=== PATIENT | female | born 1970 | race African-American/Black ===

== ENCOUNTER 2020-03-22 20:48 | Emergency (ER) | payer OTHER, SELFPAY ==
[~2020-03-22] VITALS: Ht 167.6 cm; Wt 72.6 kg
[2020-03-22] MEDS ORDERED: AMLODIPINE BES2.5 MG ORAL (20:54)
[2020-03-22] MEDS ORDERED: Albuterol 90mcg Inhaler 8gm INH STA (21:05)
[2020-03-22 21:09] VITALS: BP 145/93
[2020-03-22] MEDS ORDERED: dexAMETHasone 10mg/ml Inj IV ONE (21:30)
[2020-03-22 22:26] LABS: BILIRUBIN, URINE NEGATIVE (NEGATIVE); COLOR,URINE PALE YELLOW; GLUCOSE, URINE (UA) NEGATIVE (NEGATIVE); KETONES,URINE NEGATIVE (NEGATIVE); LEUKOCYTE ESTERASE ,URINE 1+ (NEGATIVE); NITRITE,URINE NEGATIVE (NEGATIVE); PH,URINE 7 (4.5-8.0); PROTEIN,URINE NEGATIVE (NEGATIVE); UROBILINOGEN,URINE NORMAL MG/DL (0.0-1.0)
[2020-03-22 22:29] LABS: BASOPHILS % (AUTO) 1.4 % (0.0-2.0); EOSINOPHILS % (AUTO) 0.4 % (0.0-3.0); HEMATOCRIT 44.7 % (37.0-47.0); HEMOGLOBIN 14.5 G/DL (12.0-16.0); LYMPHOCYTES % (AUTO) 37.4 % (20.0-45.0); MEAN CORPUSCULAR VOLUME 90 FL (80-99); NEUTROPHILS % (AUTO) 51.7 % (45.0-75.0); PLATELET COUNT 262 K/UL (150-450); RED BLOOD COUNT 4.98 M/UL (4.20-5.40); RED CELL DISTRIBUTION WIDTH 16.1 % (11.6-14.8)
[2020-03-22 22:30] LABS: APPEARANCE,URINE SLIGHTLY CLOUDY
[2020-03-22 22:48] LABS: INR 0.9 (0.9-1.1)
[2020-03-22 23:00] VITALS: BP 139/83
--- NOTE | 2020-03-22 23:09 | Emergency Room Report ---
History of Present Illness General Chief Complaint: Upper Respiratory Illness Source: Patient (Leroy Feliz MD) Present Illness HPI Patient presents with shortness of breath and wheezing and productive cough. This been going on for several days and worsening. She was brought in by EMS. They initially stated that they did not hear any wheezing. The patient states she does not have an inhaler at this time. The cough is productive of clear mucus at this time. She gets significantly short of breath when she tries to exert herself. This is not her worst attack. She has some chest pressure but denies any chest pain at this time. She stopped smoking a month ago. She denies calf pain edema hemoptysis. She has felt feverish but denies any documented temperature. The patient states is been many years since she last had a chest x-ray or evaluation of her chest. Unknown whether she has been exposed to COVID-19 positive contacts. No sore throat, palpitations, nausea, vomiting, diarrhea, dysuria, abdominal pain, joint pain, rashes, depression, anxiety, visual changes, dizziness, headache. (Leroy Feliz MD) Allergies: Coded Allergies: PENICILLINS (Verified Allergy, Unknown, 03/22/20) SULFA (SULFONAMIDE ANTIBIOTICS) (Verified Allergy, Unknown, 03/22/20) COVID-19 Screening Contact w/high risk pt: Yes Experienced COVID-19 symptoms?: Yes COVID-19 Testing performed [employer]: Yes COVID-19 Screening: PUI COVID-19 COVID-19 Testing Source: NASOPHARYNX (Leroy Feliz MD) Patient History Past Medical History: see triage record Social History: Reports: smoking - stopped 1 month ago, drug use - see tox screen Social History Narrative from streets Reviewed Nursing Documentation: PMH: Agreed; PSxH: Agreed (Leroy Feliz MD) Nursing Documentation-PMH Past Medical History: No History, Except For Hx Hypertension: Yes Hx Diabetes: Yes (Leroy Feliz MD) Review of Systems All Other Systems: negative except mentioned in HPI (Leroy Feliz MD) Physical Exam Vital Signs Date Time Temp Pulse Resp B/P (MAP) Pulse Ox O2 Delivery O2 Flow Rate FiO2 03/22/20 20:51 98.1 100 18 145/93 (110) 98 Room Air Sp02 EP Interpretation: reviewed, normal General Appearance: alert, GCS 15, non-toxic, mild distress Head: normocephalic, atraumatic Eyes: bilateral eye PERRL, bilateral eye EOMI, bilateral eye Scleral Injection ENT: moist mucus membranes Neck: supple Respiratory: respiratory distress - Mild, rhonchi, wheezing, expiration, ins piration Cardiovascular #1: no edema, tachycardia Cardiovascular #2: 2+ radial (L) Gastrointestinal: normal bowel sounds, non tender, soft Musculoskeletal: back normal, normal range of motion, no calf tenderness Neurologic: alert, oriented x3, grossly normal Psychiatric: mood/affect normal Skin: no rash, warm/dry, other - Patient fully clothed (Leroy Feliz MD) Medical Decision Making Diagnostic Impression: Primary Impression: COPD exacerbation Additional Impressions: Mass of upper lobe of right lung Pleural effusion on left UTI (urinary tract infection) Qualified Codes: N30.00 - Acute cystitis without hematuria Upper respiratory tract infection due to COVID-19 virus Cocaine abuse ER Course Patient with history of COPD presents with dyspnea and wheezing. Differential includes exacerbation of COPD, COVID-19, bronchitis amongst others. While waiting to be admitted to the emergency department the patient was having some respiratory difficulty and using accessory muscles. Albuterol was ordered to be used while waiting for an emergency department bed. Evaluation with EKG, chest x-ray and labs. Patient treated with dexamethasone. Patient placed on a surveillance monitor when available. Suspicion for pulmonary was extremely low. EKG with nonspecific ST-T wave changes. Chest x-ray with right upper lobe mass and left lower lobe effusion with scarring. White count normal. CMP unremarkable. Urinalysis with pyuria. C-reactive protein elevated. Lactic acid normal. Azithromycin ordered for COPD exacerbation. Patient somewhat improved with albuterol metered-dose inhaler. Macrobid ordered for urinary tract infection. Covid test ordered. Patient also had albuterol and Atrovent ordered. Covid test positive. Patient signed out to Dr. German for final disposition. Laboratory Tests Test 03/22/20 22:05 03/22/20 22:50 White Blood Count 9.0 K/UL (4.8-10.8) Red Blood Count 4.98 M/UL (4.20-5.40) Hemoglobin 14.5 G/DL (12.0-16.0) Hematocrit 44.7 % (37.0-47.0) Mean Corpuscular Volume 90 FL (80-99) Mean Corpuscular Hemoglobin 29.2 PG (27.0-31.0) Mean Corpuscular Hemoglobin Concent 32.5 G/DL (32.0-36.0) Red Cell Distribution Width 16.1 % (11.6-14.8) H Platelet Count 262 K/UL (150-450) Mean Platelet Volume 8.4 FL (6.5-10.1) Neutrophils (%) (Auto) 51.7 % (45.0-75.0) Lymphocytes (%) (Auto) 37.4 % (20.0-45.0) Monocytes (%) (Auto) 9.0 % (1.0-10.0) Eosinophils (%) (Auto) 0.4 % (0.0-3.0) Basophils (%) (Auto) 1.4 % (0.0-2.0) Prothrombin Time 10.2 SEC (9.30-11.50) Prothrombin Time INR 0.9 (0.9-1.1) Activated Partial Thromboplast Time 25 SEC (23-33) D-Dimer 0.21 mg/L FEU (0.00-0.49) Urine Color Pale yellow Urine Appearance Slightly cloudy Urine pH 7 (4.5-8.0) Urine Specific [place] 1.005 (1.005-1.035) Urine Protein Negative (NEGATIVE) Urine Glucose (UA) Negative (NEGATIVE) Urine Ketones Negative (NEGATIVE) Urine Blood 2+ (NEGATIVE) H Urine Nitrite Negative (NEGATIVE) Urine Bilirubin Negative (NEGATIVE) Urine Urobilinogen Normal MG/DL (0.0-1.0) Urine Leukocyte Esterase 1+ (NEGATIVE) H Urine RBC 5-10 /HPF (0 - 2) H Urine WBC 10-15 /HPF (0 - 2) H Urine Squamous Epithelial Cells Many /LPF (NONE/OCC) H Urine Bacteria Many /HPF (NONE) H Urine Opiates Screen Negative (NEGATIVE) Urine Barbiturates Screen Negative (NEGATIVE) Phencyclidine (PCP) Screen Negative (NEGATIVE) Urine Amphetamines Screen Negative (NEGATIVE) Urine Benzodiazepines Screen Negative (NEGATIVE) Urine Cocaine Screen Positive (NEGATIVE) H Urine Marijuana (THC) Screen Negative (NEGATIVE) Sodium Level 138 MMOL/L (136-145) Potassium Level 3.5 MMOL/L (3.5-5.1) Chloride Level 102 MMOL/L (98-107) Carbon Dioxide Level 31 MMOL/L (21-32) Anion Gap 5 mmol/L (5-15) Blood Urea Nitrogen 6 mg/dL (7-18) L Creatinine 1.0 MG/DL (0.55-1.30) Estimated Glomerular Filtration Rate > 60 mL/min (>60) Glucose Level 118 MG/DL (74-106) H Lactic Acid Level 1.60 mmol/L (0.4-2.0) Calcium Level 8.8 MG/DL (8.5-10.1) Magnesium Level 2.0 MG/DL (1.8-2.4) Ferritin 203 NG/ML (8-388) Total Bilirubin 0.2 MG/DL (0.2-1.0) Aspartate Amino Transferase (AST) 23 U/L (15-37) Alanine Aminotransferase (ALT) 25 U/L (12-78) Alkaline Phosphatase 81 U/L (46-116) Lactate Dehydrogenase 173 U/L (81-234) Total Creatine Kinase 66 U/L (26-308) C-Reactive Protein, Quantitative 3.6 mg/dL (0.00-0.90) H Pro-B-Type Natriuretic Peptide 173 pg/mL (0-125) H Total Protein 7.4 G/DL (6.4-8.2) Albumin 3.3 G/DL (3.4-5.0) L Globulin 4.1 g/dL Albumin/Globulin Ratio 0.8 (1.0-2.7) L Lipase 171 U/L (73-393) Microbiology Date/Time Source Procedure Growth Status 03/22/20 23:19 Nasopharynx SARS-CoV-2 RdRp Gene Assay - Final Complete (Leroy Feliz MD) ER Course This patient was signed out to me pending admission. Patient actually has [employer] insurance and was excepted for transfer. I discussed the case with Dr. Jan Garza. Case #[id number]. Patient is being transferred him more for COPD exacerbation rather than Covid infection. Oxygenation is normal. She is wheezing however. There is most likely secondary to her cocaine abuse. (Morgan German MD) EKG Diagnostic Results Rate: normal Rhythm: NSR ST Segments: no acute changes - LVH (Leroy Feliz MD) Rhythm Strip Diag. Results EP Interpretation: yes Rhythm: NSR, no PVC's, no ectopy (Leroy Feliz MD) Chest X-Ray Diagnostic Results Chest X-Ray Diagnostic Results : Chest X-Ray Ordered: Yes Interpretation: no pneumothorax, other - RUL mass, L effusion Impression: Other Electronically Signed by: Electronically signed by Leroy Feliz MD (Leroy Feliz MD) CT/MRI/US Diagnostic Results CT/MRI/US Diagnostic Results : Imaging Test Ordered: CT chest Impression Read by radiologist. There is a pleural-based anterior right apical pulmonary mass measuring 3 x 2.3 x 2.3 cm. (Morgan German MD) Last Vital Signs Date Time Temp Pulse Resp B/P (MAP) Pulse Ox O2 Delivery O2 Flow Rate FiO2 03/22/20 21:09 100 18 Room Air 03/22/20 21:09 98.1 145/93 98 Status: improved (Leroy Feliz MD) Disposition: SHORT-TERM HOSP Condition: Serious Referrals: NOT CHOSEN IPA/,REFERRING (PCP) Leroy Feliz MD Mar 22, 2020 23:09 Morgan German MD Mar 23, 2020 01:50
[2020-03-22] MEDS ORDERED: Azithromycin 500 MG in NS 275 ML IV ONE (23:15)
[2020-03-22] MEDS ORDERED: Ipratropium 0.02% Inh Soln 2.5ml UD HHN ONE (23:15)
[2020-03-22] MEDS ORDERED: Albuterol ud Inhalation HHN ONE (23:15)
[2020-03-22] MEDS ORDERED: Azithromycin 500 MG in NS 275 ML IV SCH (23:15)
[2020-03-22 23:17] LABS: ANION GAP 5 mmol/L (5-15); BLOOD UREA NITROGEN 6 mg/dL (7-18); CALCIUM 8.8 MG/DL (8.5-10.1); CARBON DIOXIDE 31 MMOL/L (21-32); CHLORIDE 102 MMOL/L (98-107); POTASSIUM 3.5 MMOL/L (3.5-5.1); SODIUM 138 MMOL/L (136-145)
[2020-03-22 23:29] LABS: ALANINE AMINOTRANSFERASE 25 U/L (12-78); ALBUMIN 3.3 G/DL (3.4-5.0); ALBUMIN/GLOBULIN RATIO 0.8 (1.0-2.7); ALKALINE PHOSPHATASE 81 U/L (46-116); ASPARTATE AMINO TRANSFERASE 23 U/L (15-37); BILIRUBIN,TOTAL 0.2 MG/DL (0.2-1.0); CREATINE KINASE 66 U/L (26-308); FERRITIN 203 NG/ML (8-388); LACTATE DEHYDROGENASE 173 U/L (81-234)
--- NOTE | 2020-03-23 01:35 | Diagnostic Imaging Report ---
EXAM: CT Chest Without Intravenous Contrast CLINICAL HISTORY: MASS TECHNIQUE: Axial computed tomography images of the chest without intravenous contrast. CTDI is 12.60 mGy and DLP is 382.20 mGy-cm. One or more of the following dose reduction techniques were used: automated exposure control, adjustment of the mA and/or kV according to patient size, use of iterative reconstruction technique. Coronal and sagittal reformatted images were created and reviewed. COMPARISON: Same-day chest. FINDINGS: Lungs: Pleural-based anterior right apical pulmonary mass 3 x 2.3 x 2. 3 cm. Pleural space: Unremarkable. No pneumothorax. No significant effusion. Heart: Unremarkable. No cardiomegaly. No significant pericardial effusion. Bones/joints: Unremarkable. No acute fracture. No dislocation. Soft tissues: Unremarkable. Vasculature: Unremarkable. No thoracic aortic aneurysm. Lymph nodes: Unremarkable. No enlarged lymph nodes. IMPRESSION: 1. Pleural-based anterior right apical pulmonary mass 3 x 2.3 x 2.3 cm. 2. Recommend image guided percutaneous CT-guided biopsy. 3. Otherwise unremarkable study. EXAM: CT Abdomen Without Intravenous Contrast CLINICAL HISTORY: MASS TECHNIQUE: Axial computed tomography images of the abdomen without intravenous contrast. CTDI is 12.60 mGy and DLP is 382.20 mGy-cm. One or more of the following dose reduction techniques were used: automated exposure control, adjustment of the mA and/or kV according to patient size, use of iterative reconstruction technique. Coronal and sagittal reformatted images were created and reviewed. COMPARISON: Same-day chest. FINDINGS: Lung bases: Unremarkable. No mass. No consolidation. Liver: Unremarkable. Gallbladder and bile ducts: Unremarkable. No calcified stones. No ductal dilation. Pancreas: Unremarkable. No ductal dilation. Spleen: Unremarkable. No splenomegaly. Adrenals: Unremarkable. No mass. Kidneys and ureters: Unremarkable. No obstructing stones. No hydronephrosis. Stomach and bowel: Unremarkable. No obstruction. No mucosal thickening. Intraperitoneal space: Unremarkable. No free air. No significant fluid collection. Bones/joints: No acute fracture. No dislocation. Soft tissues: Unremarkable. Vasculature: Unremarkable. No abdominal aortic aneurysm. Lymph nodes: Unremarkable. No enlarged lymph nodes. IMPRESSION: Unremarkable study.
[2020-03-23 02:00] VITALS: BP 149/83
[2020-03-23 03:11] VITALS: BP 150/90
--- NOTE | 2020-03-24 17:32 | Diagnostic Imaging Report ---
EXAM: XR Chest, 1 View CLINICAL HISTORY: DYSPNEA TECHNIQUE: Frontal view of the chest. COMPARISON: Subsequent CT chest 03/23/2020 FINDINGS: Lungs: Otherwise no acute cardiopulmonary disease. Right upper lung 3. 9 cm mass, better evaluated on subsequently obtained CT, please see report from CT chest dated 03/23/2020 for further discussion. Pleural space: Small left pleural effusion. No pneumothorax. Heart: Unremarkable. No cardiomegaly. Mediastinum: Unremarkable. Bones/joints: No acute abnormality IMPRESSION: 1. Small left pleural effusion. 2. Otherwise no acute cardiopulmonary disease. 3. Right upper lung 3.9 cm mass, better evaluated on subsequently obtained CT, please see report from CT chest dated 03/23/2020 for further discussion.
--- NOTE | 2020-03-24 17:51 | Cardiology Report ---
APPROVED REPORT EKG Measurement Heart [id number] DC 160P [id number] <Conclusion> Normal sinus rhythm Minimal voltage criteria for LVH, may be normal variant T wave abnormality, consider anterior ischemia Abnormal ECG
== END 2020-03-23 03:11 | disposition short-term general hospital (02) ==
LOC: EDBD 20:48 → MERGE 21:10 → EMR 21:10
DX: U07.1 COVID-19 (principal); J44.1 Chronic obstructive pulmonary disease with (acute) exacerbation; J06.9 Acute upper respiratory infection, unspecified; R91.8 Other nonspecific abnormal finding of lung field; J90 Pleural effusion, not elsewhere classified; N30.00 Acute cystitis without hematuria; F14.10 Cocaine abuse, uncomplicated; I10 Essential (primary) hypertension; E11.9 Type 2 diabetes mellitus without complications; Z87.891 Personal history of nicotine dependence; Z88.0 Allergy status to penicillin; Z88.2 Allergy status to sulfonamides
CPT/HCPCS: 36415; 71045; 71250; 80053; 80307; 81003; 82550; 82728; 83605; 83615; 83690; 83735; 83880; 85025; 85379; 85610; 85730; 86140; 87086; 87181; 93005; 96361; 96365; 96367; 96375; J0456; J7030; J7050; U0002; Z7502; 99285